=== PATIENT | male | born 1975 | race Caucasian/White ===

== ENCOUNTER 2016-09-28 14:42 | Emergency (ER) | payer BC ==
--- NOTE | 2016-09-28 15:04 | ED ---
General Adult HPI - General Chief complaint: Chest Pain Stated complaint: Chest Pain Time Seen by Provider: 09/28/16 15:02 Source: patient, RN notes reviewed, old records reviewed Mode of arrival: wheelchair Limitations: no limitations - History of Present Illness Initial comments: This is a 41-year-old male to the ER for reevaluation chest pain, patient had chest pain in conjunction with diaphoresis while at work. Patient has history of high blood pressure no prior history of cardiac evaluation. Patient presents today with doing his normal job, nothing out of the ordinary in terms of stress, including life stressors and physical stress. Patient denies fever cough or congestion of travel history or sick contacts. Patient does state that he started off with severe chest pain on moving parts at work heaviness anterior chest Kellyon was actually sitting on his chest. He was not significant wisher breath but didn't get a little bit sweaty at the time. He did call his was being of the emergency room at this time. Patient states this was about an hour ago when it started and his pain has been improving ever since. - Related Data Home Medications Medication Instructions Recorded Confirmed Cyclobenzaprine [Flexeril] 10 mg PO TID 09/28/16 09/28/16 Desvenlafaxine [Desvenlafaxine ER] 50 mg PO DAILY 09/28/16 09/28/16 Lisinopril 20 mg PO DAILY 09/28/16 09/28/16 amLODIPine [Norvasc] 5 mg PO DAILY 09/28/16 09/28/16 traMADol HCL [Ultram] 50 mg PO Q6HR PRN 09/28/16 09/28/16 Allergies Allergy/AdvReac Type Severity Reaction Status Date / Time morphine Allergy Chest Pain Verified 09/28/16 15:32 Review of Systems ROS Statement: Those systems with pertinent positive or pertinent negative responses have been documented in the HPI. ROS Other: All systems not noted in ROS Statement are negative. Past Medical History Past Medical History: Hypertension Additional Past Medical History / Comment(s): chronic low back pain History of Any Multi-Drug Resistant Organisms: None Reported Past Surgical History: Adenoidectomy, Orthopedic Surgery, Tonsillectomy Additional Past Surgical History / Comment(s): hemorrhoid surgery Past Psychological History: No Psychological Hx Reported Smoking Status: Never smoker Past Alcohol Use History: Occasional Past Drug Use History: None Reported General Exam Limitations: no limitations General appearance: alert, in no apparent distress, anxious Head exam: Present: atraumatic, normocephalic, normal inspection Eye exam: Present: normal appearance, PERRL, EOMI. Absent: scleral icterus, conjunctival injection, periorbital swelling ENT exam: Present: normal exam, mucous membranes moist Neck exam: Present: normal inspection. Absent: tenderness, meningismus, lymphadenopathy Respiratory exam: Present: normal lung sounds bilaterally. Absent: respiratory distress, wheezes, rales, rhonchi, stridor Cardiovascular Exam: Present: regular rate, normal rhythm, normal heart sounds. Absent: systolic murmur, diastolic murmur, rubs, gallop, clicks GI/Abdominal exam: Present: soft, normal bowel sounds. Absent: distended, tenderness, guarding, rebound, rigid Extremities exam: Present: normal inspection, full ROM, normal capillary refill. Absent: tenderness, pedal edema, joint swelling, calf tenderness Back exam: Present: normal inspection Neurological exam: Present: alert, oriented X3, CN II-XII intact Psychiatric exam: Present: normal affect, normal mood Skin exam: Present: warm, dry, intact, normal color. Absent: rash Course Vital Signs 09/28/16 14:44 Temperature 98.1 F Pulse Rate 100 Respiratory 18 Rate Blood Pressure 131/81 O2 Sat by Pulse 99 Oximetry - Reevaluation(s) Reevaluation #1: 09/28/16 16:29 Patient states his chest pain is much improved and first started about an hour ago, is slowly been getting better since arrival to emergency room EKG Findings - EKG Comments: EKG Findings:: EKG shows normal sinus rhythm at 92, DE 170, QRS 124, QTc 469 Medical Decision Making - Medical Decision Making 41 male year with history of high blood pressure, patient coming with specific anterior chest pain, heaviness and chest no significant shortness of breath, patient does have cardiac risk factors and age, patient will be admitted for cardiac observation, patient also a strong family history of heart disease - Lab Data Result diagrams: 09/28/16 15:05 09/28/16 15:05 Lab Results 09/28/16 09/28/16 09/28/16 Range/Units 15:05 15:05 15:05 WBC 7.5 (3.8-10.6) k/uL RBC 5.43 (4.30-5.90) m/uL Hgb 15.7 (13.0-17.5) gm/dL Hct 45.4 (39.0-53.0) % MCV 83.6 (80.0-100.0) fL MCH 28.8 (25.0-35.0) pg MCHC 34.5 (31.0-37.0) g/dL RDW 13.1 (11.5-15.5) % Plt Count 170 (150-450) k/uL Neutrophils % 60 % Lymphocytes % 27 % Monocytes % 7 % Eosinophils % 3 % Basophils % 1 % Neutrophils # 4.6 (1.3-7.7) k/uL Lymphocytes # 2.0 (1.0-4.8) k/uL Monocytes # 0.5 (0-1.0) k/uL Eosinophils # 0.3 (0-0.7) k/uL Basophils # 0.0 (0-0.2) k/uL PT (9.0-12.0) sec INR (<1.1) APTT (22.0-30.0) sec Sodium 143 (137-145) mmol/L Potassium 4.0 (3.5-5.1) mmol/L Chloride 102 (98-107) mmol/L Carbon Dioxide 29 (22-30) mmol/L Anion Gap 12 mmol/L BUN 18 (9-20) mg/dL Creatinine 1.94 H (0.66-1.25) mg/dL Est GFR (MDRD) Af Amer 46 (>60 ml/min/1.73 sqM) Est GFR (MDRD) Non-Af 38 (>60 ml/min/1.73 sqM) Glucose 93 (74-99) mg/dL Calcium 9.4 (8.4-10.2) mg/dL Magnesium 2.0 (1.6-2.3) mg/dL Total Bilirubin 0.6 (0.2-1.3) mg/dL AST 34 (17-59) U/L ALT 63 (21-72) U/L Alkaline Phosphatase 69 (38-126) U/L Total Creatine Kinase 187 H (55-170) U/L CK-MB (CK-2) 2.4 (0.0-2.4) ng/mL CK-MB (CK-2) Rel Index 1.3 Troponin I <0.012 (0.000-0.034) ng/mL Total Protein 7.3 (6.3-8.2) g/dL Albumin 4.7 (3.5-5.0) g/dL Lipase 53 (23-300) U/L 09/28/16 Range/Units 15:05 WBC (3.8-10.6) k/uL RBC (4.30-5.90) m/uL Hgb (13.0-17.5) gm/dL Hct (39.0-53.0) % MCV (80.0-100.0) fL MCH (25.0-35.0) pg MCHC (31.0-37.0) g/dL RDW (11.5-15.5) % Plt Count (150-450) k/uL Neutrophils % % Lymphocytes % % Monocytes % % Eosinophils % % Basophils % % Neutrophils # (1.3-7.7) k/uL Lymphocytes # (1.0-4.8) k/uL Monocytes # (0-1.0) k/uL Eosinophils # (0-0.7) k/uL Basophils # (0-0.2) k/uL PT 10.8 (9.0-12.0) sec INR 1.1 (<1.1) APTT 24.2 (22.0-30.0) sec Sodium (137-145) mmol/L Potassium (3.5-5.1) mmol/L Chloride (98-107) mmol/L Carbon Dioxide (22-30) mmol/L Anion Gap mmol/L BUN (9-20) mg/dL Creatinine (0.66-1.25) mg/dL Est GFR (MDRD) Af Amer (>60 ml/min/1.73 sqM) Est GFR (MDRD) Non-Af (>60 ml/min/1.73 sqM) Glucose (74-99) mg/dL Calcium (8.4-10.2) mg/dL Magnesium (1.6-2.3) mg/dL Total Bilirubin (0.2-1.3) mg/dL AST (17-59) U/L ALT (21-72) U/L Alkaline Phosphatase (38-126) U/L Total Creatine Kinase (55-170) U/L CK-MB (CK-2) (0.0-2.4) ng/mL CK-MB (CK-2) Rel Index Troponin I (0.000-0.034) ng/mL Total Protein (6.3-8.2) g/dL Albumin (3.5-5.0) g/dL Lipase (23-300) U/L - Radiology Data Radiology results: report reviewed (Chest x-ray is negative for acute disease), image reviewed Critical Care Time Critical Care Time: Yes Total Critical Care Time: 31 Disposition Clinical Impression: Chest pain Disposition: ADMITTED IP TO THIS HOSP Condition: Undetermined Instructions: Chest Pain (ED) Referrals: Gurinder Hernandez MD [Primary Care Provider] - 1-2 days
[2016-09-28 15:14] LABS: Basophils % (A) 1 %; CH 29.9; CHCM 35.9; Eosinophils # (A) 0.3 k/uL (0-0.7); Eosinophils % (A) 3 %; HCT 45.4 % (39.0-53.0); HDW 2.85; HGB 15.7 gm/dL (13.0-17.5); Luc % (Auto) 3; Lymphocytes % (A) 27 %; MCH 28.8 pg (25.0-35.0); MCHC 34.5 g/dL (31.0-37.0); MCV 83.6 fL (80.0-100.0); Mean Platelet Volume 8.1; Monocytes # (A) 0.5 k/uL (0-1.0); Monocytes % (A) 7 %; Neutrophils # (A) 4.6 k/uL (1.3-7.7); Neutrophils % (A) 60 %; RBC 5.43 m/uL (4.30-5.90); RDW 13.1 % (11.5-15.5); WBC 7.5 k/uL (3.8-10.6)
[2016-09-28 15:21] LABS: INR 1.1 (<1.1); Partial Thromboplastin Time 24.2 sec (22.0-30.0); Prothrombin Time 10.8 sec (9.0-12.0)
[2016-09-28 15:23] LABS: Calcium 9.4 mg/dL (8.4-10.2); Total Bilirubin 0.6 mg/dL (0.2-1.3); Total Protein 7.3 g/dL (6.3-8.2)
[2016-09-28 15:33] LABS: Creatine Kinase 187 U/L (55-170)
[2016-09-28 15:46] LABS: Creatine Kinase MB 2.4 ng/mL (0.0-2.4); Troponin I <0.012 ng/mL (0.000-0.034)
[2016-09-28] MEDS ORDERED: ASPIRIN 81 MG CHEW PO STA (16:26)
[2016-09-28] MEDS ORDERED: HEPARIN SODIUM,PORCINE 5,000 UNIT/ML 1 ML VIAL IV ONE (16:26)
[2016-09-28] MEDS ORDERED: HEPARIN SODIUM,PORCINE 5,000 UNIT/ML 1 ML VIAL IV PRN (16:26)
[2016-09-28] MEDS ORDERED: NITROGLYCERIN SL TABS 0.4 MG TAB SUBLINGUAL PRN (16:26)
[2016-09-28] MEDS ORDERED: HEPARIN SODIUM,PORCINE/D5W PMX 25,000 UNIT in DEXTROSE/WATER 1 500ML.BAG IV SCH (16:30)
--- NOTE | 2016-09-28 16:36 | XR ---
EXAMINATION TYPE: XR chest 2V DATE OF EXAM: 09/28/2016 COMPARISON: NONE HISTORY: Chest pain TECHNIQUE: Frontal and lateral views of the chest are obtained. FINDINGS: Heart and mediastinum are normal. Lungs are clear. Diaphragm is normal. There are chest le ads. Bony thorax is intact. IMPRESSION: Normal chest
[2016-09-28 16:55] VITALS: RESP 16
[2016-09-28 17:33] VITALS: BP 117/68; PULSE 85; TEMP 97.5
[2016-09-29] MEDS ORDERED: ASPIRIN 325 MG TAB PO SCH (09:00)
[2016-09-29] MEDS ORDERED: ATORVASTATIN 80 MG TAB PO SCH (09:00)
== END 2016-09-28 17:32 | disposition other institution (70) ==
LOC: EC 14:42 → UNDOADMOB 16:29 → 3OBS 16:29
DX: R07.9 Chest pain, unspecified (principal); I10 Essential (primary) hypertension; Z88.5 Allergy status to narcotic agent; Z79.899 Other long term (current) drug therapy
CPT/HCPCS: 36415; 71020; 80053; 82550; 82553; 83690; 83735; 84484; 85025; 85610; 85730; 93005; 99291

== ENCOUNTER 2016-09-29 11:35 | Observation (INO) | payer BC ==
--- NOTE | 2016-09-29 11:51 | ED ---
General Adult HPI - General Chief complaint: Chest Pain Stated complaint: Chest Pain Time Seen by Provider: 09/29/16 11:46 Source: patient, RN notes reviewed, old records reviewed Mode of arrival: ambulatory Limitations: no limitations - History of Present Illness Initial comments: This is a 41-year-old male the ER for evaluation. Patient is unsafe reevaluation chest pain. Patient has no significant medical history no high blood pressure not colostrum and diabetes no shortness of breath. No diaphoresis. Patient was in ER yesterday with chest pain, patient's chest pain is pretty classic in nature, patient states chest pain is anterior chest pain having a sinus chest radiation to his arm. No diaphoresis breathing or shortness of breath yesterday with chest pain. Patient at this point has continued chest pain in the chest pain after he woke up today. - Related Data Home Medications Medication Instructions Recorded Confirmed Cyclobenzaprine [Flexeril] 10 mg PO TID 09/28/16 09/29/16 Desvenlafaxine [Desvenlafaxine ER] 50 mg PO DAILY 09/28/16 09/29/16 Lisinopril 20 mg PO DAILY 09/28/16 09/29/16 amLODIPine [Norvasc] 5 mg PO DAILY 09/28/16 09/29/16 traMADol HCL [Ultram] 50 mg PO Q6HR PRN 09/28/16 09/29/16 Allergies Allergy/AdvReac Type Severity Reaction Status Date / Time morphine Allergy Chest Pain Verified 09/29/16 12:09 Review of Systems ROS Statement: Those systems with pertinent positive or pertinent negative responses have been documented in the HPI. ROS Other: All systems not noted in ROS Statement are negative. Past Medical History Past Medical History: Hypertension Additional Past Medical History / Comment(s): chronic low back pain History of Any Multi-Drug Resistant Organisms: None Reported Past Surgical History: Adenoidectomy, Orthopedic Surgery, Tonsillectomy Additional Past Surgical History / Comment(s): hemorrhoid surgery Past Psychological History: No Psychological Hx Reported Smoking Status: Never smoker Past Alcohol Use History: Occasional Past Drug Use History: None Reported General Exam Limitations: no limitations General appearance: alert, in no apparent distress Head exam: Present: atraumatic, normocephalic, normal inspection Eye exam: Present: normal appearance, PERRL, EOMI. Absent: scleral icterus, conjunctival injection, periorbital swelling ENT exam: Present: normal exam, mucous membranes moist Neck exam: Present: normal inspection. Absent: tenderness, meningismus, lymphadenopathy Respiratory exam: Present: normal lung sounds bilaterally. Absent: respiratory distress, wheezes, rales, rhonchi, stridor Cardiovascular Exam: Present: regular rate, normal rhythm, normal heart sounds. Absent: systolic murmur, diastolic murmur, rubs, gallop, clicks GI/Abdominal exam: Present: soft, normal bowel sounds. Absent: distended, tenderness, guarding, rebound, rigid Extremities exam: Present: normal inspection, full ROM, normal capillary refill. Absent: tenderness, pedal edema, joint swelling, calf tenderness Back exam: Present: normal inspection Neurological exam: Present: alert, oriented X3, CN II-XII intact Psychiatric exam: Present: normal affect, normal mood Skin exam: Present: warm, dry, intact, normal color. Absent: rash Course Vital Signs 09/29/16 09/29/16 11:38 13:19 Temperature 97.4 F L Pulse Rate 96 79 Respiratory 20 17 Rate Blood Pressure 132/85 132/76 O2 Sat by Pulse 98 96 Oximetry - Reevaluation(s) Reevaluation #1: 09/29/16 13:28 Patient still has chest pain at this time Reevaluation #2: 09/29/16 13:28 ER visit from yesterday is reviewed EKG Findings - EKG Comments: EKG Findings:: EKG shows normal sinus rhythm rate of 86, AK 170, QRS 114, QTc 483 Medical Decision Making - Medical Decision Making 41 EL to the ER for evaluation of chest pain, recurrent visit for chest pain. Patient has no specific cardiac disease but does have typical chest pain. Patient be admitted for cardiac observation - Lab Data Result diagrams: 09/29/16 11:48 09/29/16 11:48 Lab Results 09/29/16 09/29/16 09/29/16 Range/Units 11:48 11:48 11:48 WBC 5.6 (3.8-10.6) k/uL RBC 5.18 (4.30-5.90) m/uL Hgb 14.9 (13.0-17.5) gm/dL Hct 44.0 (39.0-53.0) % MCV 85.0 (80.0-100.0) fL MCH 28.8 (25.0-35.0) pg MCHC 33.9 (31.0-37.0) g/dL RDW 13.1 (11.5-15.5) % Plt Count 156 (150-450) k/uL Neutrophils % 56 % Lymphocytes % 30 % Monocytes % 7 % Eosinophils % 4 % Basophils % 1 % Neutrophils # 3.1 (1.3-7.7) k/uL Lymphocytes # 1.7 (1.0-4.8) k/uL Monocytes # 0.4 (0-1.0) k/uL Eosinophils # 0.2 (0-0.7) k/uL Basophils # 0.0 (0-0.2) k/uL PT (9.0-12.0) sec INR (<1.1) APTT (22.0-30.0) sec D-Dimer (<0.60) mg/L FEU Sodium 142 (137-145) mmol/L Potassium 3.9 (3.5-5.1) mmol/L Chloride 103 (98-107) mmol/L Carbon Dioxide 27 (22-30) mmol/L Anion Gap 12 mmol/L BUN 23 H (9-20) mg/dL Creatinine 0.93 (0.66-1.25) mg/dL Est GFR (MDRD) Af Amer >60 (>60 ml/min/1.73 sqM) Est GFR (MDRD) Non-Af >60 (>60 ml/min/1.73 sqM) Glucose 87 (74-99) mg/dL Calcium 9.2 (8.4-10.2) mg/dL Magnesium 1.8 (1.6-2.3) mg/dL Total Bilirubin 0.7 (0.2-1.3) mg/dL AST 34 (17-59) U/L ALT 64 (21-72) U/L Alkaline Phosphatase 70 (38-126) U/L Total Creatine Kinase 198 H (55-170) U/L CK-MB (CK-2) 3.2 H* (0.0-2.4) ng/mL CK-MB (CK-2) Rel Index 1.6 Troponin I <0.012 (0.000-0.034) ng/mL Total Protein 7.2 (6.3-8.2) g/dL Albumin 4.6 (3.5-5.0) g/dL Lipase 44 (23-300) U/L 09/29/16 Range/Units 11:48 WBC (3.8-10.6) k/uL RBC (4.30-5.90) m/uL Hgb (13.0-17.5) gm/dL Hct (39.0-53.0) % MCV (80.0-100.0) fL MCH (25.0-35.0) pg MCHC (31.0-37.0) g/dL RDW (11.5-15.5) % Plt Count (150-450) k/uL Neutrophils % % Lymphocytes % % Monocytes % % Eosinophils % % Basophils % % Neutrophils # (1.3-7.7) k/uL Lymphocytes # (1.0-4.8) k/uL Monocytes # (0-1.0) k/uL Eosinophils # (0-0.7) k/uL Basophils # (0-0.2) k/uL PT 10.5 (9.0-12.0) sec INR 1.0 (<1.1) APTT 25.4 (22.0-30.0) sec D-Dimer 0.18 (<0.60) mg/L FEU Sodium (137-145) mmol/L Potassium (3.5-5.1) mmol/L Chloride (98-107) mmol/L Carbon Dioxide (22-30) mmol/L Anion Gap mmol/L BUN (9-20) mg/dL Creatinine (0.66-1.25) mg/dL Est GFR (MDRD) Af Amer (>60 ml/min/1.73 sqM) Est GFR (MDRD) Non-Af (>60 ml/min/1.73 sqM) Glucose (74-99) mg/dL Calcium (8.4-10.2) mg/dL Magnesium (1.6-2.3) mg/dL Total Bilirubin (0.2-1.3) mg/dL AST (17-59) U/L ALT (21-72) U/L Alkaline Phosphatase (38-126) U/L Total Creatine Kinase (55-170) U/L CK-MB (CK-2) (0.0-2.4) ng/mL CK-MB (CK-2) Rel Index Troponin I (0.000-0.034) ng/mL Total Protein (6.3-8.2) g/dL Albumin (3.5-5.0) g/dL Lipase (23-300) U/L - Radiology Data Radiology results: report reviewed (Chest x-ray is negative for acute disease), image reviewed Critical Care Time Critical Care Time: Yes Total Critical Care Time: 31 Disposition Clinical Impression: Chest pain Disposition: ADMITTED IP TO THIS HOSP Condition: Undetermined Instructions: Chest Pain (ED) Referrals: Gurinder Hernandez MD [Primary Care Provider] - 1-2 days
[2016-09-29 12:12] LABS: Basophils % (A) 1 %; CH 30.1; CHCM 35.5; Eosinophils # (A) 0.2 k/uL (0-0.7); Eosinophils % (A) 4 %; HDW 2.83; HGB 14.9 gm/dL (13.0-17.5); Luc # (Auto) 0.18; Luc % (Auto) 3; Lymphocytes # (A) 1.7 k/uL (1.0-4.8); Lymphocytes % (A) 30 %; MCH 28.8 pg (25.0-35.0); MCHC 33.9 g/dL (31.0-37.0); Mean Platelet Volume 8.2; Monocytes # (A) 0.4 k/uL (0-1.0); Monocytes % (A) 7 %; Neutrophils # (A) 3.1 k/uL (1.3-7.7); Neutrophils % (A) 56 %; RBC 5.18 m/uL (4.30-5.90); RDW 13.1 % (11.5-15.5); WBC 5.6 k/uL (3.8-10.6)
[2016-09-29 12:22] LABS: ALT 64 U/L (21-72); AST 34 U/L (17-59); Alkaline Phosphatase 70 U/L (38-126); Anion Gap 12 mmol/L; Blood Urea Nitrogen 23 mg/dL (9-20); Calcium 9.2 mg/dL (8.4-10.2); Carbon Dioxide 27 mmol/L (22-30); Chloride 103 mmol/L (98-107); Glucose 87 mg/dL (74-99); Magnesium 1.8 mg/dL (1.6-2.3); Non-African American GFR(MDRD) >60 (>60 ml/min/1.73 sqM); Potassium 3.9 mmol/L (3.5-5.1); Sodium 142 mmol/L (137-145); Total Bilirubin 0.7 mg/dL (0.2-1.3); Total Protein 7.2 g/dL (6.3-8.2)
--- NOTE | 2016-09-29 12:25 | XR ---
EXAMINATION TYPE: XR chest 2V DATE OF EXAM: 09/29/2016 HISTORY: Chest Pain. REFERENCE: Previous study dated 09/28/2016. FINDINGS: The lungs are clear. Pleural spaces are clear. Heart size is normal. IMPRESSION: NORMAL CHEST.
[2016-09-29 12:28] LABS: Partial Thromboplastin Time 25.4 sec (22.0-30.0); Prothrombin Time 10.5 sec (9.0-12.0)
[2016-09-29 12:34] LABS: Creatine Kinase 198 U/L (55-170)
[2016-09-29 12:47] LABS: Troponin I <0.012 ng/mL (0.000-0.034)
[2016-09-29 13:02] LABS: Creatine Kinase MB 3.2 ng/mL (0.0-2.4)
[2016-09-29] MEDS ORDERED: HEPARIN SODIUM,PORCINE 5,000 UNIT/ML 1 ML VIAL IV ONE (13:27)
[2016-09-29] MEDS ORDERED: HEPARIN SODIUM,PORCINE 5,000 UNIT/ML 1 ML VIAL IV PRN (13:27)
[2016-09-29] MEDS ORDERED: ASPIRIN 81 MG CHEW PO STA (13:27)
[2016-09-29] MEDS ORDERED: NITROGLYCERIN SL TABS 0.4 MG TAB SUBLINGUAL PRN (13:27)
[2016-09-29] MEDS ORDERED: HEPARIN SODIUM,PORCINE/D5W PMX 25,000 UNIT in DEXTROSE/WATER 1 500ML.BAG IV SCH (13:30)
--- NOTE | 2016-09-29 19:54 | CONS ---
DATE OF CONSULTATION: ATTENDING: Dr. Hernandez. Mr. Reeves is a 41-year-old male with a history of hypertension, who presented with symptoms of chest discomfort. The first episode discomfort occurred yesterday while at work, his working is not very physical. He came into the emergency room and his enzymes were negative. The pain has resolved. He went home, but subsequently at home he felt well, but today while at work again he had an episode of chest discomfort and he did not feel well. He came into the emergency room and subsequently admitted. The discomfort does not radiate and does not have respirophasic pattern to it. He is average in his exercise tolerance, has no chest discomfort. He has no history of dizziness, palpitation or syncope. No PND, orthopnea, or peripheral edema. He has no prior cardiac work-up. His coronary risk factors are remarkable for a history of hypertension. He is nondiabetic, nonsmoker. There is a family history of premature coronary disease in his father. His lipid has been reported to be normal in the past according to him. His medications include amlodipine 5 mg daily, lisinopril 20 mg daily, Flexeril and Ultram. REVIEW OF SYSTEMS: RESPIRATORY SYSTEM: He has no recent wheezing. No cough. No history of obstructive lung disease. GI SYSTEM: No recent GI bleeding. No peptic ulcer disease. SYSTEM: No dysuria or hematuria. NERVOUS SYSTEM: No history of stroke or seizure. PHYSICAL EXAMINATION: He is a 41-year-old male, alert, oriented, in no apparent distress. Blood pressure 132/70 with a heart rate in the 70s. HEAD: Normocephalic. EYES: Sclerae anicteric. NECK: Good upstroke. No bruit. No jugular venous distention. LUNGS: Clear to auscultation. HEART: Regular rate and rhythm. S1, S2, no S3, with a systolic murmur heard at the base 2/6. No diastolic murmur. No rub. ABDOMEN: Soft, nontender, positive bowel sounds. No organomegaly. EXTREMITIES: No edema. Intact distal pulses. Lab data revealed troponin of less than 0.012. Yesterday's sample was normal as well. BUN and creatinine of 23 and 0.93. Potassium 3.9. Hemoglobin of 14.9. EKG revealed a sinus mechanism with incomplete right bundle-branch block. No acute changes. Chest x-ray shows no evidence of infiltrate. IMPRESSION: 1. Chest discomfort of unclear etiology has atypical feature for ischemic heart disease, probably noncardiac in etiology. 2. Hypertension. 3. Family history of premature coronary disease. RECOMMENDATION: I will obtain serial enzymes. If there is no abnormality, I will stop the heparin. I will proceed with a stress echocardiogram to evaluate his status and guide his treatment. Depending on the results of testing, further recommendations will be made. Thank you for this consult. We will follow with you.
[2016-09-29 20:22] LABS: Creatine Kinase 147 U/L (55-170)
[2016-09-29 20:34] LABS: Creatine Kinase MB 2.4 ng/mL (0.0-2.4); Troponin I <0.012 ng/mL (0.000-0.034)
[2016-09-30 00:06] LABS: Creatine Kinase 140 U/L (55-170)
[2016-09-30 00:19] LABS: Creatine Kinase MB 2.2 ng/mL (0.0-2.4); Troponin I <0.012 ng/mL (0.000-0.034)
[2016-09-30 03:30] LABS: Mean Platelet Volume 7.8
[2016-09-30 04:01] LABS: Cholesterol 170 mg/dL (<200); HDL Cholesterol 46 mg/dL (40-60); Triglycerides 130 mg/dL (<150)
--- NOTE | 2016-09-30 07:24 | HP ---
DATE OF ADMISSION: 09/29/2016 PRESENTING COMPLAINT: Chest pain. HISTORY OF PRESENTING COMPLAINT: This is a pleasant 41 -year-old patient of Dr. Hernandez whose chronic stable medical conditions include hypertension, back spasms and depression. 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 While he was at work, not doing anything specifically heavy, he developed ( ) sensation in the chest, lasted about an hour and a half. The patient was short of breath, sweating. Did feel a bit lightheaded. That is when he decided to come in to the hospital and admitted with unstable angina. Patient's father did at age of 62 from heart trouble. is at the bedside. REVIEW OF SYSTEMS: CONSTITUTIONAL: None. HEENT: Slight headache. RESPIRATORY: As above. CARDIOVASCULAR: As above. GASTROINTESTINAL: None. GENITOURINARY: None. MUSCULOSKELETAL: Chronic back spasm. Dermatological: None. HEMATOLOGICAL: None. LYMPHATICS: None. PSYCHIATRY: None. NEUROLOGICAL: None. PAST HISTORY: Hypertension, back spasm, depression. PAST SURGICAL HISTORY: Adenoidectomy, orthopedic surgery, tonsillectomy, and ( ) surgery. SOCIAL HISTORY: No smoking. Alcohol occasionally. 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 FAMILY HISTORY: Father of heart disease at age 62. HOME MEDICATIONS: 1. Ultram 50 mg p.o. q.6 p.r.n. 2. Norvasc 5 mg p.o. daily. 3. Lisinopril 20 mg p.o. daily. 4. Desvenlafaxine EF 50 mg p.o. daily. 5. Flexeril 10 mg p.o. t.i.d. ALLERGIES: MORPHINE. On examination, temperature 97.9, pulse 77, respirations 18, blood pressure 155/80, pulse ox 99% on room air. GENERAL APPEARANCE: Well built, BMI of 38.5, sitting in bed, somewhat anxious. EYES: Pupils equal. Conjunctivae normal. HEENT: External appearance of nose and ears normal. Oral cavity normal. NECK: JVD not raised. Mass not palpable. RESPIRATORY: Effort normal. LUNGS: Fair air entry. CARDIOVASCULAR: First and second sounds normal. No edema. ABDOMEN: Soft, nontender. Liver and spleen not palpable. LYMPHATIC: No lymph nodes palpable in the neck and axilla. PSYCHIATRY: Alert and oriented x3. Mood and affect is normal. NEUROLOGICAL: Pupils equal. Cranial nerves grossly intact. Power and sensation grossly intact. INVESTIGATIONS: White count 5.6, hemoglobin 14.9, platelets of 156. Potassium 3.9. BUN 23, creatinine 0.93, troponin I 0.012. EKG normal sinus rhythm. ASSESSMENT: 1. Cardiac sounding presentation in a patient with risk factors include a positive family history of hypertension, obesity. 2. Essential hypertension. 3. Chronic lower back spasm. 4. Depression not otherwise specified. 5. Obesity, body mass index of 38.5. 6. IV heparin monitoring. PLAN: Serial cardiac enzymes are in place. If negative, the patient will get a stress test. Cardiology was consulted. Care was discussed with the patient and at the bedside. The patient should see a dietitian as outpatient for weight loss measures. Copy to Dr. Hernandez.
[2016-09-30] MEDS ORDERED: LISINOPRIL 20 MG TAB PO SCH (09:00)
[2016-09-30] MEDS ORDERED: ASPIRIN 325 MG TAB PO SCH (09:00)
[2016-09-30] MEDS ORDERED: ASPIRIN 81 MG CHEW PO SCH (09:00)
[2016-09-30] MEDS ORDERED: amLODIPine 5 MG TAB PO SCH (09:00)
--- NOTE | 2016-09-30 09:55 | PN ---
Mr. Reeves is a 41-year-old male with history of hypertension who presented with symptoms of chest discomfort. She is feeling well this morning. He is denying any symptoms of chest pain. His breathing has been stable. He denies any dizziness, palpitation. He denies any nausea. He continues to be on amlodipine 5 mg daily, lisinopril 20 mg daily, aspirin once a day. PHYSICAL EXAMINATION: Blood pressure running in the 100s with the heart rate in the 70s. LUNGS: Clear. HEART: Regular rate and rhythm. S1 and S2, no S3, with systolic murmur heard at the base. No diastolic murmur. No rub. ABDOMEN: Soft, obese, nontender. EXTREMITIES: No edema. Lab data revealed troponin less than 0.012. Cholesterol 170, LDL of 98. IMPRESSION: 1. Chest discomfort, atypical for ischemic heart disease. 2. Hypertension RECOMMENDATIONS: I have recommended to proceed with a stress echocardiogram to evaluate his findings and guide his treatment. Depending on results of testing, further recommendation will be made.
--- NOTE | 2016-09-30 11:10 | ECHOF ---
Referral Reason:cp MEASUREMENTS -------- HEIGHT: 188.0 cm WEIGHT: 135.6 kg BP: 155/80 RVIDd: 3.1 cm (< 3.3) IVSd: 1.3 cm (0.6 - 1.1) LVIDd: 4.9 cm (3.9 - 5.3) LVPWd: 1.3 cm (0.6 - 1.1) IVSs: 1.9 cm LVIDs: 3.3 cm LVPWs: 1.6 cm LA Diam: 3.4 cm (2.7 - 3.8) LAESV Index (A-L): 13.82 ml/m Ao Diam: 4.2 cm (2.0 - 3.7) AV Cusp: 2.2 cm (1.5 - 2.6) MV EXCURSION: 18.395 mm (> 18.000) MV EF SLOPE: 70 mm/s (70 - 150) EPSS: 0.8 cm MV E Fredrick: 0.57 m/s MV DecT: 370 ms MV A Fredrick: 0.75 m/s MV E/A Ratio: 0.77 FINDINGS -------- Sinus rhythm. This was a technically good study. The left ventricular size is normal. There is mild concentric left ventricular hypertrophy. Overall left ventricular systolic function is normal with, an EF between 60 - 65 %. The right ventricle is normal in size and function. Normal LA size by volume 22+/-6 ml/m2. The right atrium is normal in size. The aortic valve is trileaflet and appears structurally normal. The mitral valve is normal. The tricuspid valve appears structurally normal. Trace/mild (physiologic) pulmonic regurgitation. The aortic root is dilated measuring 4.2cm. IVC Not well visulized. The pericardium is normal. CONCLUSIONS -------- 1. Sinus rhythm. 2. The tricuspid valve appears structurally normal. 3. Trace/mild (physiologic) pulmonic regurgitation. 4. The aortic root is dilated measuring 4.2cm. 5. The pericardium is normal. 6. This was a technically good study. 7. The left ventricular size is normal. 8. There is mild concentric left ventricular hypertrophy. 9. Overall left ventricular systolic function is normal with, an EF between 60 - 65 %. 10. The right ventricle is normal in size and function. 11. Normal LA size by volume 22+/-6 ml/m2. 12. The aortic valve is trileaflet and appears structurally normal. 13. The mitral valve is normal. CLAIMS INVESTIGATOR: Jackie Patterson RDCS
--- NOTE | 2016-09-30 12:08 | ECHOS ---
DATE OF SERVICE: 09/30/2016 AGE: 41Y SEX: M HT: 74 WT: 299 lbs. Protocol Kurt: X Others: Stress Echo Stage: III Dur. of Exercise: 7 minutes *Heart Rate Blood Pressure *Rest: 103 Rest: 142/56 * *Max. Achieved: 154 Maximum BP: 178/78 85% PMHR: 151 100% PMHR: 178 *METS: 8.5 INDICATIONS: Chest pain. MEDICATIONS: Pristiq, tramadol, Flexeril. Patient was exercised for a total period of 7 minutes. A peak heart rate of 154 was achieved. Maximum blood pressure of 178/78 mmHg was noted. Resting EKG shows normal sinus rhythm with normal SC interval and QRS duration and normal ST-T waves. No ST segment depression suggestive of ischemia was noted. The baseline echocardiographic images reveal normal left ventricular chamber size with normal left ventricular systolic function. In the immediate postexercise period, normal increase in the wall thickness and contractility is noted. FINAL IMPRESSION: This stress echocardiographic study is negative for stress-induced ischemia. EKG portion of the stress test is not suggestive of ischemia. Patient's exercise tolerance is average.
[2016-09-30 12:20] VITALS: BP 144/90; PULSE 99; RESP 14; TEMP 98.8
[2016-09-30] MEDS ORDERED: traMADol 50 MG TAB PO PRN (12:35)
[2016-09-30] MEDS ORDERED: DESVENLAFAXINE SUCCINATE 50 MG TAB.ER.24H PO SCH (12:36)
[2016-09-30] MEDS ORDERED: CYCLOBENZAPRINE 10 MG TAB PO SCH (21:00)
--- NOTE | 2016-10-02 15:22 | DS ---
DATE OF ADMISSION: 09/29/2016 DATE OF DISCHARGE: 09/30/2016 FINAL DIAGNOSES: 1. Chest pain, possibly musculoskeletal with negative stress echo for any reversible ischemia. 2. Essential hypertension. 3. Chronic low back pain and back spasm. 4. Depression, not otherwise specified. 5. Obesity, body mass index of 38.5. 6. IV heparin monitoring. DISCHARGE DISPOSITION: The patient is being discharged in stable condition with guarded prognosis. Cardiology cleared discharged. HISTORY OF PRESENT ILLNESS: This 41-year-old gentleman admitted with chest pain. The patient underwent a stress echo, which was negative. On exam, vitals are stable. CARDIOVASCULAR SYSTEM: S1, S2. ABDOMEN: Soft. DISCHARGE ADVICE: 1. Diet is cardiac. 2. Activity limited until follow up. 3. Follow with Dr. Hernandez in 2 to 3 days. The medications are: 1. Norvasc 5 mg p.o. daily. 2. Flexeril 10 mg p.o. t.i.d. 3. Desvenlafaxine 50 mg p.o. b.i.d. 4. Lisinopril 20 mg daily. 5. Ultram 50 mg q.6 p.r.n. Once again, the patient will be discharged in a stable condition with guarded prognosis.
== END 2016-09-30 15:20 | disposition home or self-care (01) ==
LOC: EC 11:35 → 3OBS 13:27
PROVIDERS: ADMIT Hospitalist; ATTEND Hospitalist
DX: R07.89 Other chest pain (principal); I10 Essential (primary) hypertension; G89.29 Other chronic pain; M54.5 Low back pain; Z82.49 Family history of ischemic heart disease and other diseases of the circulatory system; F32.9 Major depressive disorder, single episode, unspecified; M62.830 Muscle spasm of back; E66.9 Obesity, unspecified; R42 Dizziness and giddiness; Z88.5 Allergy status to narcotic agent; Z79.899 Other long term (current) drug therapy; Z68.38 Body mass index [BMI] 38.0-38.9, adult
CPT/HCPCS: 96365; 96366 ×2; 96376; 99291; 36415; 93005; 93350; 93017; 93306; 85379; 80061; 80053; 82550; 82553; 83690; 83735; 84484; 85025; 85049; 85610; 85730 ×2; 71020; G0378 ×2; J1644 ×2; Q9957

== ENCOUNTER 2022-12-25 08:44 | Day surgery (SDC) | payer BC ==
[2022-12-23 15:02] VITALS: BMI 35.3
[~2022-12-25 08:44] MED LIST: SODIUM CHLORIDE 0.9% 1,000 ML IV SCH
[2022-12-25] MEDS ORDERED: SODIUM CHLORIDE 0.9% 500 ML 500 ML IV ONE (08:56)
[2022-12-25 09:06] VITALS: RESP 16; TEMP 98.1
[2022-12-25] MEDS ORDERED: ceFAZolin 3 GM in SODIUM CHLORIDE 0.9% 100 ML IVPB STA (09:09)
[2022-12-25 09:26] LABS: Glucose,Whole Blood 98 mg/dL (70-110)
[2022-12-25] MEDS ORDERED: LIDOCAINE 1% INJ 10MG/ML (20 ML MDV) SQ ONE (10:50)
[2022-12-25] MEDS ORDERED: MIDAZOLAM 2 MG/2 ML VIAL IVP ONE (10:55)
--- NOTE | 2022-12-25 11:19 | P.PCN ---
Date of Procedure: 12/25/22 Description of Procedure: PROCEDURE: Insertion of Linq loop recorder INDICATION: Recurrent TIA Patient is a 47-year-old male who had multiple TIAs. Initial evaluations with a transesophageal echocardiogram and other workup has not shown any embolic etiology or any thrombotic etiology of his stroke. Patient's short-term monitoring has not demonstrated any atrial fibrillation activity. Because of patient's young age and concerns of multiple TIAs with reliable history, patient was scheduled for long-term rhythm monitoring by replacement. HISTORY: Patient is a [] CONSENT:I have discussed the risks, benefits and alternative therapies for the above-mentioned procedure. The patient has indicated understanding and acceptance of the risks and procedures discussed. He understands that there is a risk of possible migration of the device deep which might require surgical interventions. Patient understands that removal of device is more cumbersome then insertion. Understanding all these, patient is agreeable for the procedure PROCEDURE: Patient was brought to the catheterization lab in a fasting state. Patient was prepped and draped in the usual fashion. 1% lidocaine was used to anesthetize the area of the left third intercostal space. Using the loop recorder incision device, a small 0.5 cm incision was made in the left 4rd intercostal space, at 45 degree angle to the left sternal border. Next the Linq loop recorder was deployed in the 4rd intercostal space subcutaneously using the insertion tool. Thresholds were checked and were excellent at 0.55 V. Next the incision was closed using reabsorbale suture and surgical glue. Tegaderm was placed over the incision and the procedure was completed. The patient tolerated the procedure well. The patient was transported to the post cath holding area in stable condition. He was given the post procedure care instructions on how to use the handheld device to record symptoms. Patient's was notified after the procedure who reported understanding the indications, possible complication, and post procedure care instructions. Linq loop recorder serial number: [id number]
[2022-12-25 18:46] VITALS: BP 155/78; PULSE 77
== END 2022-12-25 12:21 | disposition home or self-care (01) ==
LOC: CATHEP 08:44
PROVIDERS: ATTEND Student in an Organized Health Care Education/Training Program
DX: G45.9 Transient cerebral ischemic attack, unspecified (principal); E78.5 Hyperlipidemia, unspecified; I10 Essential (primary) hypertension; E66.3 Overweight; Z86.73 Personal history of transient ischemic attack (TIA), and cerebral infarction without residual deficits; Z79.82 Long term (current) use of aspirin; Z79.02 Long term (current) use of antithrombotics/antiplatelets; Z79.899 Other long term (current) drug therapy; Z79.811 Long term (current) use of aromatase inhibitors; Z79.84 Long term (current) use of oral hypoglycemic drugs; Z88.5 Allergy status to narcotic agent; Z68.36 Body mass index [BMI] 36.0-36.9, adult
CPT/HCPCS: 33285; 99152; C1764; J2250; J0690; J2001

== ENCOUNTER → 2023-01-28 | Outpatient (CLI) | payer BC | LOC: 3 N SLEEP 17:01 | PROVIDERS: ATTEND Internal Medicine Critical Care Medicine | DX: R06.09 Other forms of dyspnea (principal); Z88.5 Allergy status to narcotic agent ==

== ENCOUNTER → 2023-03-15 | Outpatient (CLI) | payer BC ==
--- NOTE | 2023-03-16 07:57 | CT ---
EXAMINATION TYPE: CT chest wo con DATE OF EXAM: 03/15/2023 COMPARISON: None HISTORY: Dyspnea. CT DLP: 316 mGycm, Automated exposure control for dose reduction was used. CONTRAST: None TECHNIQUE: Axial images were obtained at 1 mm thick sections at 10 mm intervals. This will limit po rtions of the examination which may not be visualized within the [id number]. Images were obtained in the prone and supine views. FINDINGS: Portion of the thyroid visualized is normal. There is a 0.7 cm nodule within the posterior lateral right lung base. Punctate calcifications may be in the posterior right sulcus measuring 0.4 cm. An additional calcification may be right posterior lung base measuring 0.5 cm. No bronchiectasis evident. No pulmonary fibrosis. No suspicious infiltrates. No enlarged mediastinal or hilar adenopathy is evident. There are scattered shotty lymphadenopathy present within the mediastinum. The ascending aorta diameter at the level of the main pulmonary arter y is 3.7 cm. The main pulmonary artery diameter at the bifurcation is 3.[address] sections are obtained through the upper abdomen. Abdomen is essentially unremarkable. IMPRESSION: 1. There is a 0.7 cm nodule posterolateral right lung base. Couple of more benign-appearing 0.4 cm ca lcifications are in the posterior right sulcus. Follow-up CT chest in 3 months is recommended.
== END | disposition home or self-care (01) ==
LOC: RADCTMAIN 14:45
PROVIDERS: ATTEND Internal Medicine Critical Care Medicine
DX: R91.1 Solitary pulmonary nodule (principal); R06.09 Other forms of dyspnea
CPT/HCPCS: 71250

== ENCOUNTER → 2023-11-08 | Outpatient (CLI) | payer BC ==
[2023-11-08 20:00] LABS: Basophils # (A) 0.03 X 10*3/uL (0.00-0.10); Basophils % (A) 0.4 %; Eosinophils # (A) 0.21 X 10*3/uL (0.04-0.35); Eosinophils % (A) 2.7 %; HCT 49.8 % (39.6-50.0); HGB 16.8 g/dL (13.0-17.0); Lymphocytes # (A) 1.37 X 10*3/uL (0.90-5.00); Lymphocytes % (A) 17.8 %; MCH 28.8 pg (27.0-32.0); MCHC 33.7 g/dL (32.0-37.0); MCV 85.3 FL (80.0-97.0); Mean Platelet Volume 11.3 FL (9.5-12.2); Monocytes # (A) 0.58 X 10*3/uL (0.20-1.00); Monocytes % (A) 7.5 %; NRBC Per 100 WBC 0 X 10*3/uL (0.00-0.01); Neutrophils # (A) 5.48 X 10*3/uL (1.80-7.70); Neutrophils % (A) 71.2 %; Platelet Count 201 X 10*3/uL (140-440); RBC 5.84 X 10*6/uL (4.40-5.60)
== END | disposition home or self-care (01) ==
LOC: LABPAT 15:14
PROVIDERS: ATTEND Orthopaedic Surgery Hand Surgery
DX: Z01.812 Encounter for preprocedural laboratory examination (principal); G56.02 Carpal tunnel syndrome, left upper limb; G56.22 Lesion of ulnar nerve, left upper limb
CPT/HCPCS: 85025

== ENCOUNTER 2023-11-17 10:30 | Day surgery (SDC) | payer BC ==
[~2023-11-17 10:30] MED LIST changes: +BUPIVACAINE (PF) 0.5% 30 ML VIAL ONE; +FAMOTIDINE 20 MG TAB ONE; +FAMOTIDINE 20 MG/2 ML VIAL ONE; +LACTATED RINGERS 1,000 ML BAG ONE; +LIDOCAINE 1% INJ 10MG/ML (20 ML MDV) ONE; +MIDAZOLAM 2 MG/2 ML VIAL ONE; +ONDANSETRON 4 MG/2 ML VIAL ONE; +PHENYLEPHRINE-0.9% NACL SYG 1,000 MCG/10 ML SYRINGE ONE; +PROPOFOL 10 MG/ML 20 ML VIAL IV ONE; -SODIUM CHLORIDE 0.9% 1,000 ML IV SCH; +fentaNYL (PF) 50 MCG/ML 2 ML AMP ONE
[2023-11-17] MEDS ORDERED: KETOROLAC 15 MG/ML 1 ML VIAL ONE (11:20)
[2023-12-03] MEDS ORDERED: ONDANSETRON 4 MG/2 ML VIAL ONE ×2 (06:54)
--- NOTE | 2023-12-03 15:58 | OP ---
OPERATIVE REPORT DATE OF SERVICE : 12/03/2023 PREOPERATIVE DIAGNOSIS: Right carpal tunnel syndrome. POSTOPERATIVE DIAGNOSIS: Right carpal tunnel syndrome. PROCEDURE PERFORMED: Right carpal tunnel release. ANESTHESIA: Local with IV sedation. PREP: DuraPrep. INDICATIONS FOR PROCEDURE: The patient is a 48-year-old male, who presents with progressive right hand pain and numbness secondary to carpal tunnel syndrome despite conservative measures. A discussion of the risks and benefits of operative intervention versus continued conservative measures was made with the patient. He opted to proceed with surgery. Operative risks to include infection, neurovascular injury, development of blood clots, possible incomplete resolution of symptoms, possible recurrence of symptoms, and need for subsequent procedures was discussed. Informed consent was obtained. DESCRIPTION OF PROCEDURE: The patient was brought to the operating room and after induction of IV sedation, the right upper extremity was prepped and draped in normal fashion. The proposed incision site was outlined in line with the radial aspect of the 4th ray extending from the volar distal wrist crease distally 1.5 cm. The soft tissues were injected with 0.25% plain Marcaine. 9 mL was utilized. The tourniquet was inflated to 250 mmHg. The skin incision was then made again in line with the radial aspect of the 4th ray. Skin and subcutaneous tissues were divided sharply. Electrocautery was used for hemostasis. The superficial palmar fascia was identified and split in line with the skin incision. The transverse carpal ligament was identified and transected under direct visualization distally to the level of the palmar fat pad. Proximally was taken to level the volar distal wrist crease. A plane above and below the transverse carpal ligament in the confluence of the distal forearm fascia was then developed with tenotomies. The confluence of the distal forearm fascia and the transverse carpal ligament was then transected with the tenotomy scissors with the tines pointed in the ulnar direction. I felt I had adequate proximal release. Neurolysis was not performed. The wound was irrigated with normal saline. The skin was reapproximated with simple 3-0 nylon sutures. A sterile dressing was applied. The tourniquet was deflated with less than 15 minutes total tourniquet time. The patient was awoken from sedation and transferred to recovery room in good condition. Blood loss was estimated at 1 mL. No complications were incurred. Sponge and needle counts were correct at the end of the case. MMODL / IJN: [id number] /
== END 2023-11-17 12:05 | disposition home or self-care (01) ==
LOC: OR 10:30
PROVIDERS: ATTEND Orthopaedic Surgery Hand Surgery
DX: G56.01 Carpal tunnel syndrome, right upper limb

== ENCOUNTER 2023-12-03 06:30 | Day surgery (SDC) | payer BC ==
[2023-12-03] MEDS ORDERED: ceFAZolin 1,000 MG VIAL ONE (07:38)
[2023-12-03] MEDS ORDERED: PROPOFOL 10 MG/ML 20 ML VIAL IV ONE (07:38)
[2023-12-03] MEDS ORDERED: KETAMINE HCL IN 0.9 % NACL 50 MG/5 ML SYRINGE ONE (07:38)
[2023-12-03] MEDS ORDERED: SODIUM CHLORIDE 0.9% 100 ML BAG ONE (07:38)
[2023-12-03] MEDS ORDERED: LACTATED RINGERS 1,000 ML BAG ONE (07:38)
[2023-12-03] MEDS ORDERED: MIDAZOLAM 2 MG/2 ML VIAL ONE (07:38)
[2023-12-03] MEDS ORDERED: ONDANSETRON 4 MG/2 ML VIAL ONE (07:38)
[2023-12-03] MEDS ORDERED: BUPIVACAINE (PF) 0.25% 10 ML VIAL ONE (07:38)
[2023-12-03] MEDS ORDERED: fentaNYL (PF) 50 MCG/ML 2 ML AMP ONE (07:38)
[2023-12-03] MEDS ORDERED: LIDOCAINE HCL/PF 20 MG/ML 10 ML AMP ONE (07:38)
--- NOTE | 2023-12-03 15:58 | OP ---
OPERATIVE REPORT DATE OF SERVICE : 12/03/2023 PREOPERATIVE DIAGNOSIS: Right carpal tunnel syndrome. POSTOPERATIVE DIAGNOSIS: Right carpal tunnel syndrome. PROCEDURE PERFORMED: Right carpal tunnel release. ANESTHESIA: Local with IV sedation. PREP: DuraPrep. INDICATIONS FOR PROCEDURE: The patient is a 48-year-old male, who presents with progressive right hand pain and numbness secondary to carpal tunnel syndrome despite conservative measures. A discussion of the risks and benefits of operative intervention versus continued conservative measures was made with the patient. He opted to proceed with surgery. Operative risks to include infection, neurovascular injury, development of blood clots, possible incomplete resolution of symptoms, possible recurrence of symptoms, and need for subsequent procedures was discussed. Informed consent was obtained. DESCRIPTION OF PROCEDURE: The patient was brought to the operating room and after induction of IV sedation, the right upper extremity was prepped and draped in normal fashion. The proposed incision site was outlined in line with the radial aspect of the 4th ray extending from the volar distal wrist crease distally 1.5 cm. The soft tissues were injected with 0.25% plain Marcaine. 9 mL was utilized. The tourniquet was inflated to 250 mmHg. The skin incision was then made again in line with the radial aspect of the 4th ray. Skin and subcutaneous tissues were divided sharply. Electrocautery was used for hemostasis. The superficial palmar fascia was identified and split in line with the skin incision. The transverse carpal ligament was identified and transected under direct visualization distally to the level of the palmar fat pad. Proximally was taken to level the volar distal wrist crease. A plane above and below the transverse carpal ligament in the confluence of the distal forearm fascia was then developed with tenotomies. The confluence of the distal forearm fascia and the transverse carpal ligament was then transected with the tenotomy scissors with the tines pointed in the ulnar direction. I felt I had adequate proximal release. Neurolysis was not performed. The wound was irrigated with normal saline. The skin was reapproximated with simple 3-0 nylon sutures. A sterile dressing was applied. The tourniquet was deflated with less than 15 minutes total tourniquet time. The patient was awoken from sedation and transferred to recovery room in good condition. Blood loss was estimated at 1 mL. No complications were incurred. Sponge and needle counts were correct at the end of the case. MMODL / IJN: [id number] /
--- NOTE | 2024-01-12 14:22 | HP ---
HISTORY AND PHYSICAL CHIEF COMPLAINT: Right hand pain and numbness. 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 He notes symptoms when active with gripping and grasping. He also has night symptoms. He has tried previous bracing along with medications, without much relief. PAST MEDICAL HISTORY: Significant for [id number] diabetes, hypertension. PAST SURGICAL HISTORY: Significant for previous knee surgery in addition to left carpal tunnel release. FAMILY HISTORY: Significant for coronary artery disease. SOCIAL HISTORY: Negative for current tobacco or alcohol use. REVIEW OF SYSTEMS: 16-point review of systems otherwise reviewed and is noncontributory. CURRENT MEDICATIONS: 1. Amlodipine. 2. Aspirin. 3. Atorvastatin. 4. Plavix. 5. Lisinopril. 6. Metformin. ALLERGIES: He denies drug allergies. PHYSICAL EXAMINATION: VITAL SIGNS: The patient is approximately 6 feet 2 inches, 290 pounds of endomorphic habitus. HEENT: Nonfocal. NECK: Supple. He is nontender about the right shoulder and elbow. On examination of the right wrist, he has a positive carpal tunnel compression test. Light touch is diminished in the right thumb, index, middle, and ring fingers. Abductor pollicis brevis strength is 5-/5. Minimal thenar wasting is noted. IMAGING: EMG report right upper extremity shows right median motor latency of the carpal canal 4.4, sensory latency 3.6. IMPRESSION: Right carpal tunnel syndrome - symptomatic. RECOMMENDATIONS: I talked to the patient at length regarding his condition along with treatment options. At this point he is quite symptomatic despite previous conservative measures. After thorough discussion, he opts to proceed with surgery. We will plan to proceed with right carpal tunnel release. We will likely perform that utilizing local anesthetic and IV sedation as an outpatient procedure. Risks and benefits were discussed at length in layman's terms. MMODL / IJN: [id number] /
== END 2023-12-03 09:00 ==
LOC: OR 06:30
PROVIDERS: ATTEND Orthopaedic Surgery
DX: G56.01 Carpal tunnel syndrome, right upper limb

== ENCOUNTER → 2023-12-23 | Outpatient (CLI) | payer BC ==
[2023-12-23 07:59] VITALS: BP 141/94; PULSE 89; RESP 18
--- NOTE | 2023-12-23 14:12 | P.PAINPG ---
PQRS Measure Charge Sheet Comment: HISTORY OF PRESENT ILLNESS: A 48 yr old male as a referral from [facility] presents today w severe and chronic neck pain > 6 mo secondary to radiculopathy, spondylosis and facet arthropathy without myelopathy for evaluation. Pt states pain level is provoked at 6 /10 in intensity, constant, localized in the mid to lower cervical spine, predominantly axial, sharp in character w occasional shooting pain towards the BL shoulders. Pain is provoked by rotation. Pain is alleviated by physician guided HEP from Dr Sheth every other day since Oct 2023, topical CBD oil, manual massage, repositioning and rest. PMH: OA, HTN, CVA, Vitamin D Deficiency PSH: Adenoidectomy, BL CTR (2023), L Wrist/ Elbow Surgery (2023), Tonsillectomy, Hemorrhoidectomy SH: Never smoker, Occ ETOH use, No illicit drug use FH: Non contributory All: See list Meds: See list REVIEW OF ORGAN SYSTEMS: CONSTITUTIONAL: No fevers or chills. No recent weight loss. NEUROLOGICAL: + numbness and tingling along the distal extremities. No seizure disorders or headaches. MUSCULOSKELETAL: + pain PSYCHIATRIC: Denies current depression or suicidal thoughts. Physical Examinations : Constitutional : Cooperative , not in acute distress . Neurologic : Cranial nerve II to XII intact. No focal neurological deficits. Psychiatric : alert & oriented x 3. Matching mood & appropriate affect. Judgment & insight intact. Musculoskeletal : Cervical Spine Motor strength in the deltoid and biceps: Normal right side. Normal Left side Motor strength biceps and the wrist extensors: Normal right side . Normal left side Motor strength in the triceps muscle: Normal right side. Normal left side Deep tendon reflexes: Normal at the biceps. Normal at Brachioradialis. Normal at triceps Vertebral body tenderness to deep palpation over C6 Cervical facet loading test: positive bilaterally Spurling test: positive bilaterally C6- C7 Neck distraction test: positive bilaterally Ji sign: positive bilaterally Lumbar spine Motor strength lower extremities ,thigh and legs 5/5 Right side , 5/5 Left side Deep tendon reflexes : Normal Knee Jerk. Normal Ankle Jerk Vertebral body tenderness over Lerma Test positive Lumbar facet Loading Test: positive Right / positive Left Range of motion of the lumbar spine Flexion 30 degrees, extension 10 degrees Straight Leg Raise test: Left/ Right positive at degrees Sotero test: positive right / positive left. Severe tenderness over the Sacroiliac joint on the Right / Left sides Gaenslen test: positive bilaterally Seated flexion test: positive bilaterally. Sacral spine : Severe tenderness over the Sacroiliac joint: right side / left side Range of motion: Flexion of the lumbar spine <60 degrees Range of motion: Extension of the lumbar spine <20 degrees Gaenslen's Test positive Sotero test: positive right side / left side Thigh Thrust Test Sacral Thrust Test Imaging: MRI non contrast cervical spine from 12/21/22 reviewed Assessment/ Plan : Cervical radiculopathy Recommendation of ROGELIO C6-C7 #1. Risks, benefits of procedure discussed and patient verbalized understanding. Admits to anti- coagulant use or medical history of diabetes. Protocol for discontinuation/ continuation of medications jess procedure discussed. All questions answered. I have spent greater than 45 minutes on patient care today. Dr aSvage was available by phone for the evaluation of this patient. The time was used to review the medical records including relevant urine studies and Prescription history (MAPs), review of the available imaging, evaluation and examination of the patient, coordination of care with the medical staff and if applicable referring physicians, as well as creation of the medical record - Pain Location Neck Pharmacological Interventions: Epidural PQRS Narrative: Smoking Status Never smoker Home Medications: Ambulatory Orders amLODIPine [Norvasc] 5 mg PO DAILY 09/28/16 lisinopriL [Lisinopril] 20 mg PO DAILY 09/28/16 Albuterol Inhaler [Ventolin Hfa Inhaler] 1 - 2 puff INHALATION Q6H PRN 12/23/22 Aspirin [Adult Low Dose Aspirin EC] 81 mg PO DAILY 12/23/22 Atorvastatin [Lipitor] 80 mg PO DAILY 12/23/22 Clopidogrel [Plavix] 75 mg PO DAILY 12/23/22 Tirzepatide [Mounjaro] 5 mg SQ MONTEJO 12/23/22 metFORMIN HCL [Glucophage] 500 mg PO BID 12/23/22 Controlled Substance Measures - Controlled Substance Measures Is patient prescribed a controlled substance at discharge?: No
== END ==
LOC: PNWHC3 07:31
PROVIDERS: ATTEND Specialist
DX: M47.812 Spondylosis without myelopathy or radiculopathy, cervical region
CPT/HCPCS: 99202

== ENCOUNTER 2024-01-13 12:46 | Day surgery (SDC) | payer BC ==
[2024-01-12 08:59] VITALS: BMI 36.6
[~2024-01-13 12:46] MED LIST changes: -BUPIVACAINE (PF) 0.5% 30 ML VIAL ONE; -FAMOTIDINE 20 MG TAB ONE; -FAMOTIDINE 20 MG/2 ML VIAL ONE; -LACTATED RINGERS 1,000 ML BAG ONE; +LACTATED RINGERS 1,000 ML IV SCH; -LIDOCAINE 1% INJ 10MG/ML (20 ML MDV) ONE; -MIDAZOLAM 2 MG/2 ML VIAL ONE; -ONDANSETRON 4 MG/2 ML VIAL ONE; -PHENYLEPHRINE-0.9% NACL SYG 1,000 MCG/10 ML SYRINGE ONE; -PROPOFOL 10 MG/ML 20 ML VIAL IV ONE; -fentaNYL (PF) 50 MCG/ML 2 ML AMP ONE
[2024-01-13 13:43] VITALS: RESP 16; TEMP 97.5
[2024-01-13 13:46] LABS: Glucose,Whole Blood 91 mg/dL (70-110)
[2024-01-13] MEDS ORDERED: IOPAMIDOL M200 10 ML VIAL ONE (14:41)
[2024-01-13] MEDS ORDERED: DEXAMETHASONE SOD PHOSPHATE 10 MG/ML 1 ML VIAL ONE (14:41)
--- NOTE | 2024-01-13 15:15 | P.PCN ---
Date of Procedure: 01/13/24 Description of Procedure: Pre- and Post-operative Diagnosis: Cervical radiculopathy Procedure: C6-C7 Inter-Laminar Cervical Epidural Steroid Injection under biplanar fluoroscopy Surgeon: Jerrell Redman Anesthesia: Local: 1% Lidocaine, IV sedation : None Complications: None. Estimated blood loss: None Specimens removed: None Fluoroscopic image: saved to patient electronic medical records. Indications for Procedure: The patient has been suffering from neck pain and pain radiating to the upper extremity . Inadequate pain control with pharmacologic regimen. An inter-laminar approach cervical epidural steroid injection was scheduled for the patient. Procedure and Findings: The patient was seen and examined in the holding area. The written informed consent was obtained after explaining the risks, benefits, alternatives of the procedure to the patient. The patient was brought to the procedure room and was placed in the prone position on the operating table. A pillow was placed under the upper chest. Standard anesthesia monitoring was done through out the procedure. Timeout was completed. The skin preparation was done with ChloraPrep 1 and draping was done in usual sterile fashion. Sterile technique was observed throughout the procedure. Under fluoroscopic guidance, the C6-C7 inter-laminar space was identified. 4 ml of 1% Lidocaine was injected with a 25 gauge needle to achieve adequate local anesthesia of the skin and subcutaneous tissue. A 20 gauge, 3.5 inch Tuohy type epidural needle was placed and gradually advanced up to the epidural space using loss of resistance technique and fluoroscopic guidance. No paresthesia was noted. A negative aspiration was confirmed and then 2 ml [id number] was injected. A good dye spread was seen in the epidural space and it was negative for any intrathecal, intraneural or intravascular spread. A total of 4 ml solution containing 10 mg Dexamethasone, and 3 ml preservative-free Normal Saline was injected slowly with intermittent aspiration.The needle was removed intact, area was cleaned and bandage was applied. Disposition : The patient tolerated the procedure very well. The patient was transferred to the recovery room and remained stable until discharged home. The patient was given detailed discharge instructions for bleeding, infection, increased pain at the injection site, and was advised to seek immediate medical attention should significant side effects develop. The patient will be followed up with our Pain [facility] within 4 weeks duration.
[2024-01-13 15:32] VITALS: BP 145/80; PULSE 82
--- NOTE | 2024-01-13 23:59 | FL ---
EXAMINATION TYPE: FL guided pain mgmt statistic DATE OF EXAM: 01/13/2024 3:17 PM COMPARISON: Pre Operative Images if available both CT/MRI or plain film CLINICAL INDICATION: Male, 48 years old with history of Cerv Epi Inj; TECHNIQUE: FL guided pain mgmt statistic, multiple fluoroscopic images provided for procedure. Total fluoroscopy time: 44.3 seconds Total submitted images to PACS: 1 DAP: [id number] mGym2 Gycm2 uGym2 cGycm2 or equivalent. FINDINGS: Fluoroscopic images during injection for pain management demonstrate multilevel degeneration changes throughout the spine. No evidence for fracture. No acute process identified. IMPRESSION: 1. No evidence for intraoperative complication. 2. Please see the operative/procedural note for further details. [facility], , 01/13/2024 11:57 PM
== END 2024-01-13 15:32 | disposition home or self-care (01) ==
LOC: ORPAIN 12:46
DX: M54.12 Radiculopathy, cervical region
CPT/HCPCS: 62321

== ENCOUNTER 2024-02-01 06:40 | Day surgery (SDC) | payer BC ==
[2024-01-26 16:07] VITALS: BMI 36.9
[2024-02-01] MEDS ORDERED: LACTATED RINGERS 1,000 ML IV SCH (06:54)
[2024-02-01] MEDS ORDERED: LIDOCAINE 1% (10MG/ML) FOR IV START INTRADERMA PRN (06:54)
[2024-02-01] MEDS ORDERED: ONDANSETRON 4 MG/2 ML VIAL IVP PRN (07:00)
[2024-02-01 07:17] VITALS: TEMP 97.3
[2024-02-01 07:34] LABS: Glucose,Whole Blood 112 mg/dL (70-110)
[2024-02-01] MEDS ORDERED: PROPOFOL 10 MG/ML 20 ML VIAL IV ONE (08:03)
[2024-02-01] MEDS: IV FLUID CONTINUATION 1,000 ML IV ONE (08:03)
--- NOTE | 2024-02-01 08:06 | P.GSHP ---
History of Present Illness H&P Date: 02/01/24 Chief Complaint: Colon cancer screening 49-year-old male here for colonoscopy. Last colonoscopy 8 years ago that was normal. No bowel complaints. Family history of colon cancer in his grandparent Past Medical History Past Medical History: Asthma, CVA/TIA, Diabetes Mellitus, Hyperlipidemia, Hypertension Additional Past Medical History / Comment(s): Hx TIA September 2022 with residual left hand fine motor skills affected. Hx Covid induced asthma. History of Any Multi-Drug Resistant Organisms: None Reported Past Surgical History: Adenoidectomy, Orthopedic Surgery, Tonsillectomy Additional Past Surgical History / Comment(s): Hemorrhoidectomy, right knee arthroscopy X2, bilateral wrist surgery, left elbow surgery. Past Anesthesia/Blood Transfusion Reactions: No Reported Reaction Smoking Status: Former smoker - Past Family History Father Family Medical History: No Reported History Additional Family Medical History / Comment(s): pt states none Medications and Allergies Home Medications Medication Instructions Recorded Confirmed Type amLODIPine [Norvasc] 10 mg PO QAM 09/28/16 02/01/24 History Atorvastatin [Lipitor] 40 mg PO DAILY 12/23/22 02/01/24 History Clopidogrel [Plavix] 75 mg PO DAILY 12/23/22 02/01/24 History Tirzepatide [Mounjaro] 5 mg SQ MONTEJO 12/23/22 02/01/24 History Losartan Potassium 50 mg PO QAM 01/12/24 02/01/24 History Allergies Allergy/AdvReac Type Severity Reaction Status Date / Time morphine Allergy Chest Pain Verified 02/01/24 07:12 Surgical - Exam Vital Signs Temp Pulse Resp BP Pulse Ox 97.3 F L 94 16 146/77 96 02/01/24 07:15 02/01/24 07:15 02/01/24 07:15 02/01/24 07:15 02/01/24 07:15 Physical exam: General: Well-developed, well-nourished HEENT: Normocephalic, sclerae nonicteric Abdomen: Nontender, nondistended Extremities: No edema Neuro: Alert and oriented Results - Labs Abnormal Lab Results - Last 24 Hours (Table) 02/01/24 Range/Units 07:23 POC Glucose (mg/dL) 112 H (70-110) mg/dL Assessment and Plan (1) Colon cancer screening Narrative/Plan: Will proceed with colonoscopy at this time. Current Visit: Yes Status: Acute Code(s): Z12.11 - ENCOUNTER FOR SCREENING FOR MALIGNANT NEOPLASM OF COLON SNOMED Code(s): 613278163
--- NOTE | 2024-02-01 08:17 | P.PCN ---
Date of Procedure: 02/01/24 Procedure(s) Performed: PREOPERATIVE DIAGNOSIS: Colon cancer screening POSTOPERATIVE DIAGNOSIS: Normal exam PROCEDURE: Colonoscopy ANESTHESIA: MAC SURGEON: Gilson Downing M.D. SPECIMENS: None ENDOSCOPIC PROCEDURE: The patient was placed on the endoscopy table in the left decubitus position. The Olympus colonoscope was inserted into the anus and passed under direct visualization to the base of the cecum. The appendiceal orifice was visualized. From that point the scope was slowly withdrawn inspecti ng all surfaces carefully. There were no neoplastic inflammatory or polypoid lesions throughout the cecum, ascending, transverse, descending, sigmoid and rectum. There was no visible diverticulosis noted. Digital rectal examination was normal. The patient was taken to the recovery room in stable condition per anesthesia guidelines. RECOMMENDATIONS: Resume diet. Repeat colonoscopy 10 years.
[2024-02-01 08:37] VITALS: BP 136/84; PULSE 75; RESP 18
== END 2024-02-01 08:55 | disposition home or self-care (01) ==
LOC: ORWHC2ENDO 06:40
PROVIDERS: ATTEND Surgery
CPT/HCPCS: 45378

== ENCOUNTER → 2024-09-21 | Day surgery (SDC) | payer BC, OTHER ==
[2024-09-19 18:06] VITALS: BMI 33.3
[~2024-09-21] MED LIST changes: +ALPRAZolam 0.25 MG TAB PO PRN; +ALPRAZolam 0.5 MG TAB PO PRN; +ATORVASTATIN 80 MG TAB PO STA; -LACTATED RINGERS 1,000 ML IV SCH; +NITROGLYCERIN SL TABS 0.4 MG TAB SUBLINGUAL PRN; +RX INFO: IV CONTRAST WAS GIVEN 1 EACH MISC MISCELLANE PRN; +SODIUM CHLORIDE 0.9% 1,000 ML IV SCH
[2024-09-21] MEDS: SODIUM CHLORIDE 0.9% 1,000 ML in EMPTY BAG 1 BAG IV SCH (08:40)
[2024-09-21] MEDS: ASPIRIN 325 MG TAB PO STA (08:40)
[2024-09-21 08:47] LABS: Glucose,Whole Blood 97 mg/dL (70-110)
[2024-09-21 08:58] VITALS: TEMP 97.9
[2024-09-21 09:02] LABS: Basophils # (A) 0.03 10*3/uL (0.00-0.10); Basophils % (A) 0.5 %; Eosinophils # (A) 0.29 10*3/uL (0.04-0.35); Eosinophils % (A) 5.2 %; HCT 44.3 % (39.6-50.0); HGB 16.1 g/dL (13.0-17.0); Lymphocytes # (A) 1.42 10*3/uL (0.90-5.00); Lymphocytes % (A) 25.6 %; MCH 30.6 pg (27.0-32.0); MCHC 36.3 g/dL (32.0-37.0); MCV 84.2 fL (80.0-97.0); Mean Platelet Volume 10.4 fL (9.5-12.2); Monocytes # (A) 0.45 10*3/uL (0.20-1.00); Monocytes % (A) 8.1 %; Neutrophils # (A) 3.34 10*3/uL (1.80-7.70); Neutrophils % (A) 60.4 %; Platelet Count 175 10*3/uL (140-440); RBC 5.26 10*6/uL (4.40-5.60); RDW 12.8 % (11.5-14.5); WBC 5.54 10*3/uL (4.50-10.00)
[2024-09-21 09:16] LABS: African American GFR (CKD) >90 (>60 ml/min/1.73 sqM); Anion Gap 7 mmol/L; Blood Urea Nitrogen 15 mg/dL (9-20); Calcium 8.9 mg/dL (8.4-10.2); Carbon Dioxide 26 mmol/L (22-30); Chloride 102 mmol/L (98-107); Glucose 98 mg/dL (74-99); Non-African American GFR(CKD) >90 (>60 ml/min/1.73 sqM); Sodium 135 mmol/L (137-145)
[2024-09-21 09:22] LABS: Potassium 5.1 mmol/L (3.5-5.1)
[2024-09-21] MEDS: IV FLUID CONTINUATION 1,000 ML IV ONE (11:47)
[2024-09-21] MEDS: MIDAZOLAM 2 MG/2 ML VIAL IVP ONE (11:47)
[2024-09-21] MEDS: HEPARIN SODIUM,PORCINE (1 ML) 2,500 UNIT in SODIUM CHLORIDE 0.9% 250 ML IRRIGATION PRN (11:48)
[2024-09-21] MEDS: HEPARIN SODIUM,PORCINE 10,000 UNIT in SODIUM CHLORIDE 0.9% 1,000 ML IRRIGATION PRN (11:48)
[2024-09-21] MEDS: LIDOCAINE 1% INJ 10MG/ML (20 ML MDV) SQ ONE (11:56)
[2024-09-21] MEDS: VERAPAMIL SYRINGE (5 MG/10 ML) INTRAARTER ONE (11:58)
[2024-09-21] MEDS: HEPARIN SODIUM 1,000 UN/ML (10ML VL) IV ONE (12:00)
[2024-09-21] MEDS: IOPAMIDOL-370 100ML BTL INJ ONE (12:08)
--- NOTE | 2024-09-21 12:15 | P.PCN ---
Date of Procedure: 09/21/24 Operative Findings: CARDIAC CATHETERIZATION PERFORMING PHYSICIAN: Wilfrido Barton MD, RPVI PROCEDURE PERFORMED: 1. Selective right and left coronary angiogram 2. Left heart catheterization 3. Ultrasound-guided access of the right radial artery INDICATION: Symptomatic 49-year-old gentleman with abnormal stress test COMPLICATION: None APPROACH: Right radial artery LEVEL OF SEDATION: Moderate with a sedation length of 12 minutes PROCEDURE DESCRIPTION: After obtaining an informed consent, the patient was brought to [facility]. Local anesthesia was performed using lidocaine subcutaneously. The right radial artery was cannulated using Seldinger technique, under ultrasound guidance, the guidewire passed easily, following that we advanced a 5-Georgian sheath dilator assembly, the wire and dilator were removed and sheath was flushed. Following that, 2 mg of verapamil along with 5000 unit heparin were given. Selective right and left coronary angiogram using a 5-Georgian JR4 and JL 3.5 catheters. Following that we did left heart catheterization using 5-Georgian pigtail catheter. The procedure was completed there was no complication. SELECTIVE CORONARY ANGIOGRAM: The right coronary artery: Large-caliber vessel and the dominant vessel appears to be angiographically normal Left main: Is angiographically normal The left circumflex: Large caliber vessel nondominant vessel with no evidence of high-grade stenosis The left anterior descending artery: Large caliber vessel appears to be angiographically normal as well HEMODYNAMICS: The LVEDP was 8 mmHg with no significant gradient across aortic valve CONCLUSION: 1. Normal coronary angiogram 2. Normal left-sided filling pressure POSTPROCEDURE MANAGEMENT: Medical treatment
[2024-09-21 13:57] VITALS: RESP 16
[2024-09-21 13:58] VITALS: BP 152/98; PULSE 80
== END ==
LOC: CATHCVL 08:18
PROVIDERS: ATTEND Internal Medicine Interventional Cardiology
DX: R94.39 Abnormal result of other cardiovascular function study (principal)
CPT/HCPCS: 80048; 85025; 93458; C1769; C1894; J2250; J1644 ×3; J2003; Q9967